=== PATIENT | female | born 1970 ===

== ENCOUNTER 2018-04-27 13:56 | Emergency (ER) | payer SELFPAY ==
[2018-04-27] VITALS (7 sets, daily range): BP systolic 94–111; BP diastolic 55–65; PULSE 70–91; RESP 16–22; TEMP 36.7; O2SAT 93–100; BMI 22.4
--- NOTE | 2018-04-27 14:57 | ED.ABDPAIN ---
HPI - Abdominal Pain General Chief Complaint: Abdominal Pain Stated Complaint: constipated; cancer patient, pain upon sitting Time Seen by Provider: 04/27/18 14:54 Source: patient and family Mode of arrival: ambulatory Limitations: no limitations History of Present Illness HPI narrative: This is a 48-year-old female comes to the emergency department complaint of abdominal and particular rectal pain. Patient states she has known cervical cancer, she was stage III. She has had chemo as well as radiation she states she still has to worse in her cervix. She has not had any surgery. Patient states that she has not had a bowel movement for 2 or 3 days. She has been constipated to this secondary to narcotic medication and she states her bowels moving slower after treatment. She states that she has not been passing gas for probably a 8-12 hours. Patient states she is not having any fevers, no nausea or vomiting she is quite uncomfortable and states she has had a rectal prolapse in the past. She states that it feels like rectum is out for the last several days. Patient states it feels like there is stool in the rectal vault. She did touch base with her physician who told her to add a laxative to her stool softeners. Patient states she is continuing to get surveillance but is not having any treatment currently. She states that some she has had improvement but not resolution of her cancer. She is currently here visiting from [place]. Related Data Previous Rx's Medication Instructions Recorded docusate sodium 250 mg PO DAILY PRN #30 cap 04/27/18 glycerin (adult) 1 suppositor WI QD-BID PRN #25 each 04/27/18 sennosides [Laxative (sennosides)] 50 mg PO DAILY PRN #20 tab 04/27/18 Allergies Allergy/AdvReac Type Severity Reaction Status Date / Time latex Allergy Verified 04/27/18 14:05 Review of Systems Review of Systems All systems reviewed & are unremarkable except as noted in HPI and below Constitutional Denies chills and Denies fever(s) Cardiovascular Denies chest pain and Denies dyspnea Respiratory Denies dyspnea Gastrointestinal Gastrointestinal: Reports abdominal pain, Denies melena, Denies hematochezia, Denies change in bowel habits, Reports tenesmus, Reports constipation (no BM 2-3 days), Reports cramping (lower abdomen), Denies diarrhea, Denies nausea and Denies vomiting Genitourinary Denies hematuria, Denies urinary frequency, Denies difficulty voiding, Denies dysuria, Denies flank pain, Denies urinary incontinence and Denies urinary urgency Musculoskeletal Denies back pain PFSH Medical History Cervical cancer (Acute) Exam Initial Vital Signs Initial Vital Signs: Vital Signs Pulse Rate 91 H 04/27/18 14:05 Respiratory Rate 20 04/27/18 14:05 Pulse Oximetry 97 04/27/18 14:05 GENERAL: Alert and oriented x three, well-nourished, well-appearing female in moderate distress. HEENT: Head normocephalic, atraumatic, EOMI, pupils reactive, face symmetric, moist mucous membranes NECK: Supple, full range of motion CARDIOVASCULAR: Regular rate and rhythm without murmurs, rubs or gallops. RESPIRATORY: Breath sounds equal bilaterally, no wheezes rales or rhonchi. ABDOMEN: Soft, nontender. Normoactive bowel sounds all 4 quadrants. No guarding or rebound, rigidity, no mass. Patient is moderately distended. On rectal exam she appears to have prolapsed anus but it appears chronic the skin is dry and hyperpigemented and does not appear smooth, pink or moist or like a typical recently prolapsed anus. No throbomisis or induration/fluctuence noted. Patient has mild tenderness with palpation and does have quite a bit of tenderness with digital rectal exam. She does have stool rate there in the rectal vault. There is negative for Hemoccult. : No CVA tenderness EXTREMITIES: Normal range of motion, no clubbing or edema. Neurovascularly intact NEUROLOGICAL: Cranial nerves II through XII grossly intact. Moving all extremities SKIN: Warm, dry, no petechiae, no rashes or lesions. Course Orders Ordered: ED Orders 04/27/18 15:18 XR abdomen min 2V Stat 04/27/18 16:40 Complete Blood Count AUTO DIFF Stat Comprehensive Metabolic Panel Stat Lipase Stat Discontinued Medications Hydromorphone HCl (Dilaudid) 1 mg IV Q15M [facility] Stop: 04/27/18 15:46 Last Admin: 04/27/18 15:58 Dose: 1 mg Admin: 04/27/18 15:36 Dose: 1 mg Hydromorphone HCl (Dilaudid) 1 mg IV NOW ONE Stop: 04/27/18 18:57 Last Admin: 04/27/18 19:06 Dose: 1 mg Sodium Chloride (Normal Saline 0.9%) 1,000 mls @ 1,000 mls/hr IV BOLUS ONE Stop: 04/27/18 16:16 Last Infusion: 04/27/18 17:20 Dose: 0 mls/hr Admin: 04/27/18 15:36 Dose: 1,000 mls/hr Magnesium Citrate (Magnesium Citrate) 300 ml PO NOW ONE Stop: 04/27/18 18:56 Last Admin: 04/27/18 19:06 Dose: 300 ml Mineral Oil (Mineral Oil Enema) 1 each WI NOW ONE Stop: 04/27/18 16:51 Last Admin: 04/27/18 17:20 Dose: 1 each Vital Signs - 8 hr 04/27/18 14:05 04/27/18 15:05 04/27/18 15:41 Pulse Rate 91 H 77 79 Respiratory Rate 20 20 17 Blood Pressure [Left Arm] 111/65 105/58 L Pulse Oximetry 97 100 96 04/27/18 15:56 04/27/18 16:00 04/27/18 17:00 Pulse Rate 76 76 71 Respiratory Rate 22 20 Blood Pressure [Left Arm] 105/58 L 106/60 111/62 Pulse Oximetry 96 99 93 MDM - Abdominal Pain Lab Data Attestation: I reviewed the patient's lab results. Result diagrams: 04/27/18 16:40 04/27/18 16:40 Lab Results 04/27/18 04/27/18 Range/Units 16:40 16:40 WBC 9.4 (4.5-11.0) X10^3/uL RBC 3.77 L (4.0-5.2) X10^6/uL Hgb 7.8 L (12.0-16.0) g/dL Hct 25.6 L (36-46) % MCV 67.9 L (80-100) fL MCH 20.6 L (26-34) PG MCHC 30.4 (30-36) % RDW 18.6 H (11.6-14.8) % Plt Count 512 H (150-400) X10^3/uL Neut % (Auto) 76.0 H (50-75) % Lymph % (Auto) 13.9 L (25-40) % [place] % (Auto) 6.6 (3-14) % Eos % (Auto) 2.0 (2-4) % Baso % (Auto) 1.5 (0-2) % Neut # (Auto) 7100 H (1862-4162) /uL RBC Morphology See below Poikilocytosis 2+ H Anisocytosis 1+ H Microcytosis 1+ H Ovalocytes 1+ H Sodium 141 (137-145) mmol/L Potassium 4.3 (3.4-5.1) mmol/L Chloride 105 (98-107) mmol/L Carbon Dioxide 24 (22-32) mmol/L BUN 14 (7-17) mg/dL Creatinine 0.90 (0.52-1.04) mg/dL Estimated GFR > 60.0 (>60) mL/min BUN/Creatinine Ratio 15.6 (6-22) Glucose 78 (70-100) mg/dL Calcium 9.5 (8.4-10.2) mg/dL Total Bilirubin 0.4 (0.2-1.3) mg/dL AST 27 (14-36) IU/L ALT 23 (9-52) IU/L Alkaline Phosphatase 94 (38-126) U/L Total Protein 8.0 (6.3-8.2) g/dL Albumin 4.0 (3.5-5.0) g/dL Globulin 4.0 (1.7-4.1) g/dL Albumin/Globulin Ratio 1.0 (1.0-2.8) Lipase 16 L (23-300) U/L Imaging Data Abdominal x-ray: Radiologist's impression: [place] [address] XRay Report Signed Patient: Shanita Del Toro MR#: [id number] : 1970 Acct:[id number] Age/Sex: 48 / F Date of Service: 04/27/18 Loc: ED Accession Number: [id number] Procedure: XR abdomen min 2V Ordering Provider: Brisa Sanderson D.O. PROCEDURE: XR ABDOMEN MIN 2V INDICATIONS: no BM x 3 days. rectal pain TECHNIQUE: 2 views of the abdomen were acquired. COMPARISON: None. FINDINGS: Surgical changes and devices: None. Bowel: No pneumoperitoneum. The bowel gas pattern is normal. Significant fecal stasis throughout the colon is seen. Soft tissues: No masses; visualized solid organ contours appear normal in size. No suspicious abdominal calcifications. Bones: No suspicious bony abnormalities. IMPRESSION: Significant fecal blood and consistent with moderate constipation. No gross free air. Dictated by: Jesus Ramirez M.D. on 04/27/2018 at 16:17 Approved by: Jesus Ramirez M.D. on 04/27/2018 at 16:18 [facility] Narrative Medical decision making narrative: Spoke with Dr. Manley from general surgery about patient's rectal prolapse. It appears chronic and she stated that there is no acute treatment but there are some long-term possible treatments. She recommends getting patient's stool is soft as possible a mineral oil enema. Stool occult was negative. Patient is anemic, patient states that a couple months ago she did have multiple blood transfusions. She has been asymptomatic recently. She states she had labs drawn several days ago at her oncologist's office. She does not know what her hemoglobin was since patient is asymptomatic we discussed that if she has any bleeding she should return but otherwise to follow up with her doctor. Patient hemoccult was negative patient had a moderate-sized bowel movement but feels she still has some stool retained. Will give her a bottle of magnesium citrate, set her up with Colace and senna regularly with her narcotics. We discussed that she needs to increase her fluid intake for these medications to be affected as well as a glycerin suppository. We also discussed Dr. Sandoval recommendations and reasons to return to the ER. Discharge Plan Departure Patient Disposition: Home Clinical Impression: Constipation, Anemia Instructions: Constipation, DI for Rectal Prolapse Activity Restrictions/Additional Instructions: Follow up with your physician regarding your anemia and rectal prolapse. Your hemoglobin today is 7.8, if you are having any new bleeding return to the ER for recheck of your hemoglobin Take stool softeners and laxatives daily while you are taking narcotic pain medication. Take magnesium citrate drink 1/2 of the bottle weight 3-4 hours if no further bowel movement drink the 2nd half of the bottle. You may also use glycerin suppositories 3 times daily. Return to the emergency department for fevers greater than 100.4, if you are not having any bowel movements again over the next 24 hr, if you're having increasing abdominal pain, vomiting, new bleeding, lightheadedness, passing out, chest pain or shortness of breath or other new or concerning symptoms. Prescriptions: New docusate sodium 250 mg capsule 250 mg PO DAILY PRN (Reason: constipation) Qty: 30 RF: 0 sennosides [Laxative (sennosides)] 25 mg tablet 50 mg PO DAILY PRN (Reason: constipation) Qty: 20 RF: 0 glycerin (adult) suppository 1 suppositor WI QD-BID PRN (Reason: constipation) Qty: 25 RF: 0
--- NOTE | 2018-04-27 15:19 | ED_ITS ---
HPI - Abdominal Pain General Chief Complaint: Abdominal Pain Stated Complaint: constipated; cancer patient, pain upon sitting Time Seen by Provider: 04/27/18 14:54 Source: patient and family Mode of arrival: ambulatory Limitations: no limitations History of Present Illness HPI narrative: This is a 48-year-old female comes to the emergency department complaint of abdominal and particular rectal pain. Patient states she has known cervical cancer, she was stage III. She has had chemo as well as radiation she states she still has to worse in her cervix. She has not had any surgery. Patient states that she has not had a bowel movement for 2 or 3 days. She has been constipated to this secondary to narcotic medication and she states her bowels moving slower after treatment. She states that she has not been passing gas for probably a 8-12 hours. Patient states she is not having any fevers, no nausea or vomiting she is quite uncomfortable and states she has had a rectal prolapse in the past. She states that it feels like rectum is out for the last several days. Patient states it feels like there is stool in the rectal vault. She did touch base with her physician who told her to add a laxative to her stool softeners. Patient states she is continuing to get surveillance but is not having any treatment currently. She states that some she has had improvement but not resolution of her cancer. She is currently here visiting from [place]. Related Data Previous Rx's Medication Instructions Recorded docusate sodium 250 mg PO DAILY PRN #30 cap 04/27/18 glycerin (adult) 1 suppositor GA QD-BID PRN #25 each 04/27/18 sennosides [Laxative (sennosides)] 50 mg PO DAILY PRN #20 tab 04/27/18 Allergies Allergy/AdvReac Type Severity Reaction Status Date / Time latex Allergy Verified 04/27/18 14:05 Review of Systems Review of Systems All systems reviewed & are unremarkable except as noted in HPI and below Constitutional Denies chills and Denies fever(s) Cardiovascular Denies chest pain and Denies dyspnea Respiratory Denies dyspnea Gastrointestinal Gastrointestinal: Reports abdominal pain, Denies melena, Denies hematochezia, Denies change in bowel habits, Reports tenesmus, Reports constipation (no BM 2- 3 days), Reports cramping (lower abdomen), Denies diarrhea, Denies nausea and Denies vomiting Genitourinary Denies hematuria, Denies urinary frequency, Denies difficulty voiding, Denies dysuria, Denies flank pain, Denies urinary incontinence and Denies urinary urgency Musculoskeletal Denies back pain PFSH Medical History Cervical cancer (Acute) Exam Initial Vital Signs Initial Vital Signs: Vital Signs Pulse Rate 91 H 04/27/18 14:05 Respiratory Rate 20 04/27/18 14:05 Pulse Oximetry 97 04/27/18 14:05 GENERAL: Alert and oriented x three, well-nourished, well-appearing female in moderate distress. HEENT: Head normocephalic, atraumatic, EOMI, pupils reactive, face symmetric, moist mucous membranes NECK: Supple, full range of motion CARDIOVASCULAR: Regular rate and rhythm without murmurs, rubs or gallops. RESPIRATORY: Breath sounds equal bilaterally, no wheezes rales or rhonchi. ABDOMEN: Soft, nontender. Normoactive bowel sounds all 4 quadrants. No guarding or rebound, rigidity, no mass. Patient is moderately distended. On rectal exam she appears to have prolapsed anus but it appears chronic the skin is dry and hyperpigemented and does not appear smooth, pink or moist or like a typical recently prolapsed anus. No throbomisis or induration/fluctuence noted. Patient has mild tenderness with palpation and does have quite a bit of tenderness with digital rectal exam. She does have stool rate there in the rectal vault. There is negative for Hemoccult. : No CVA tenderness EXTREMITIES: Normal range of motion, no clubbing or edema. Neurovascularly intact NEUROLOGICAL: Cranial nerves II through XII grossly intact. Moving all extremities SKIN: Warm, dry, no petechiae, no rashes or lesions. Course Orders Ordered: ED Orders 04/27/18 15:18 XR abdomen min 2V Stat 04/27/18 16:40 Complete Blood Count AUTO DIFF Stat Comprehensive Metabolic Panel Stat Lipase Stat Discontinued Medications Hydromorphone HCl (Dilaudid) 1 mg IV Q15M [facility] Stop: 04/27/18 15:46 Last Admin: 04/27/18 15:58 Dose: 1 mg Admin: 04/27/18 15:36 Dose: 1 mg Hydromorphone HCl (Dilaudid) 1 mg IV NOW ONE Stop: 04/27/18 18:57 Last Admin: 04/27/18 19:06 Dose: 1 mg Sodium Chloride (Normal Saline 0.9%) 1,000 mls @ 1,000 mls/hr IV BOLUS ONE Stop: 04/27/18 16:16 Last Infusion: 04/27/18 17:20 Dose: 0 mls/hr Admin: 04/27/18 15:36 Dose: 1,000 mls/hr Magnesium Citrate (Magnesium Citrate) 300 ml PO NOW ONE Stop: 04/27/18 18:56 Last Admin: 04/27/18 19:06 Dose: 300 ml Mineral Oil (Mineral Oil Enema) 1 each GA NOW ONE Stop: 04/27/18 16:51 Last Admin: 04/27/18 17:20 Dose: 1 each Vital Signs - 8 hr 04/27/18 14:05 04/27/18 15:05 04/27/18 15:41 Pulse Rate 91 H 77 79 Respiratory Rate 20 20 17 Blood Pressure [Left Arm] 111/65 105/58 L Pulse Oximetry 97 100 96 04/27/18 15:56 04/27/18 16:00 04/27/18 17:00 Pulse Rate 76 76 71 Respiratory Rate 22 20 Blood Pressure [Left Arm] 105/58 L 106/60 111/62 Pulse Oximetry 96 99 93 MDM - Abdominal Pain Lab Data Attestation: I reviewed the patient's lab results. Result diagrams: 04/27/18 16:40 04/27/18 16:40 Lab Results 04/27/18 04/27/18 Range/Units 16:40 16:40 WBC 9.4 (4.5-11.0) X10^3/uL RBC 3.77 L (4.0-5.2) X10^6/uL Hgb 7.8 L (12.0-16.0) g/dL Hct 25.6 L (36-46) % MCV 67.9 L (80-100) fL MCH 20.6 L (26-34) PG MCHC 30.4 (30-36) % RDW 18.6 H (11.6-14.8) % Plt Count 512 H (150-400) X10^3/uL Neut % (Auto) 76.0 H (50-75) % Lymph % (Auto) 13.9 L (25-40) % [place] % (Auto) 6.6 (3-14) % Eos % (Auto) 2.0 (2-4) % Baso % (Auto) 1.5 (0-2) % Neut # (Auto) 7100 H (8893-2043) /uL RBC Morphology See below Poikilocytosis 2+ H Anisocytosis 1+ H Microcytosis 1+ H Ovalocytes 1+ H Sodium 141 (137-145) mmol/L Potassium 4.3 (3.4-5.1) mmol/L Chloride 105 (98-107) mmol/L Carbon Dioxide 24 (22-32) mmol/L BUN 14 (7-17) mg/dL Creatinine 0.90 (0.52-1.04) mg/dL Estimated GFR > 60.0 (>60) mL/min BUN/Creatinine Ratio 15.6 (6-22) Glucose 78 (70-100) mg/dL Calcium 9.5 (8.4-10.2) mg/dL Total Bilirubin 0.4 (0.2-1.3) mg/dL AST 27 (14-36) IU/L ALT 23 (9-52) IU/L Alkaline Phosphatase 94 (38-126) U/L Total Protein 8.0 (6.3-8.2) g/dL Albumin 4.0 (3.5-5.0) g/dL Globulin 4.0 (1.7-4.1) g/dL Albumin/Globulin Ratio 1.0 (1.0-2.8) Lipase 16 L (23-300) U/L Imaging Data Abdominal x-ray: Radiologist's impression: [place] [address] XRay Report Signed Patient: Shanita Del Toro MR#: [id number] : 1970 Acct:[id number] Age/Sex: 48 / F Date of Service: 04/27/18 Loc: ED Accession Number: [id number] Procedure: XR abdomen min 2V Ordering Provider: Brisa Sanderson D.O. PROCEDURE: XR ABDOMEN MIN 2V INDICATIONS: no BM x 3 days. rectal pain TECHNIQUE: 2 views of the abdomen were acquired. COMPARISON: None. FINDINGS: Surgical changes and devices: None. Bowel: No pneumoperitoneum. The bowel gas pattern is normal. Significant fecal stasis throughout the colon is seen. Soft tissues: No masses; visualized solid organ contours appear normal in size. No suspicious abdominal calcifications. Bones: No suspicious bony abnormalities. IMPRESSION: Significant fecal blood and consistent with moderate constipation. No gross free air. Dictated by: Jesus Ramirez M.D. on 04/27/2018 at 16:17 Approved by: Jesus Ramirez M.D. on 04/27/2018 at 16:18 [facility] Narrative Medical decision making narrative: Spoke with Dr. Manley from general surgery about patient's rectal prolapse. It appears chronic and she stated that there is no acute treatment but there are some long-term possible treatments. She recommends getting patient's stool is soft as possible a mineral oil enema. Stool occult was negative. Patient is anemic, patient states that a couple months ago she did have multiple blood transfusions. She has been asymptomatic recently. She states she had labs drawn several days ago at her oncologist's office. She does not know what her hemoglobin was since patient is asymptomatic we discussed that if she has any bleeding she should return but otherwise to follow up with her doctor. Patient hemoccult was negative patient had a moderate-sized bowel movement but feels she still has some stool retained. Will give her a bottle of magnesium citrate, set her up with Colace and senna regularly with her narcotics. We discussed that she needs to increase her fluid intake for these medications to be affected as well as a glycerin suppository. We also discussed Dr. Sandoval recommendations and reasons to return to the ER. Discharge Plan Departure Patient Disposition: Home Clinical Impression: Constipation, Anemia Instructions: Constipation, DI for Rectal Prolapse Activity Restrictions/Additional Instructions: Follow up with your physician regarding your anemia and rectal prolapse. Your hemoglobin today is 7.8, if you are having any new bleeding return to the ER for recheck of your hemoglobin Take stool softeners and laxatives daily while you are taking narcotic pain medication. Take magnesium citrate drink 1/2 of the bottle weight 3-4 hours if no further bowel movement drink the 2nd half of the bottle. You may also use glycerin suppositories 3 times daily. Return to the emergency department for fevers greater than 100.4, if you are not having any bowel movements again over the next 24 hr, if you're having increasing abdominal pain, vomiting, new bleeding, lightheadedness, passing out , chest pain or shortness of breath or other new or concerning symptoms. Prescriptions: New docusate sodium 250 mg capsule 250 mg PO DAILY PRN (Reason: constipation) Qty: 30 RF: 0 sennosides [Laxative (sennosides)] 25 mg tablet 50 mg PO DAILY PRN (Reason: constipation) Qty: 20 RF: 0 glycerin (adult) suppository 1 suppositor GA QD-BID PRN (Reason: constipation) Qty: 25 RF: 0
--- NOTE | 2018-04-27 15:26 | PC.NURSE ---
pt with constipation for 2 days, has been taking miralax with stool softener, magnesium. hx of stage III cervical cancer, had radiation a year ago, just had pet scan last tuesday has been taking oxycodone 5mg (3 tabs) denies fever, but feeling burning at home, denies nausea or vomiting. abdominal distention, hx of anal prolapse, ?fissure. pt on remission, from [place], visiting her mother here in [place].
[2018-04-27] MEDS: SODIUM CHLORIDE 0.9% 1,000 ML 1000 ML IV (15:36)
[2018-04-27] MEDS: HYDROMORPHONE 1 MG INJ IV ×3 (15:36→19:06)
--- NOTE | 2018-04-27 15:57 | PC.NURSE ---
eliel with tears, mother at bs.
[2018-04-27] MEDS: MINERAL OIL 1 EACH ENEMA PR (17:20)
[2018-04-27 17:27] LABS: Add Manual Diff / Slide Review NO; Basophils Percent Auto 1.5 % (0-2); Hematocrit 25.6 % (36-46); Hemoglobin 7.8 g/dL (12.0-16.0); Lymphocytes Percent Auto 13.9 % (25-40); Mean Corpuscular HGB Conc 30.4 % (30-36); Mean Corpuscular Hemoglobin 20.6 PG (26-34); Mean Corpuscular Volume 67.9 fL (80-100); Monocytes Percent Auto 6.6 % (3-14); Neutrophils Absolute Auto 7100 /uL (1500-7000); Platelet Count 512 X10^3/uL (150-400); Red Blood Cell Count 3.77 X10^6/uL (4.0-5.2); Red Cell Distribution Width 18.6 % (11.6-14.8); White Blood Cell Count 9.4 X10^3/uL (4.5-11.0)
[2018-04-27 17:39] LABS: Alanine Aminotransferase 23 IU/L (9-52); Alkaline Phosphatase 94 U/L (38-126); Aspartate Aminotransferase 27 IU/L (14-36); BUN Creatinine Ratio 15.6 (6-22); Bilirubin Total 0.4 mg/dL (0.2-1.3); Blood Urea Nitrogen 14 mg/dL (7-17); Calcium 9.5 mg/dL (8.4-10.2); Carbon Dioxide 24 mmol/L (22-32); Chloride 105 mmol/L (98-107); Estimated Glomerular Filt Rate > 60.0 mL/min (>60); Glucose 78 mg/dL (70-100); Lipase 16 U/L (23-300); Potassium 4.3 mmol/L (3.4-5.1); Sodium 141 mmol/L (137-145)
[2018-04-27 17:42] LABS: HEMOLYSIS 54 (0-50)
[2018-04-27 17:44] LABS: Anisocytosis 1+; Microcytosis 1+; Ovalocytes 1+; Poikilocytosis 2+
--- NOTE | 2018-04-27 18:14 | PC.NURSE ---
with large stools. pt feeling better.
[2018-04-27] MEDS: MAGNESIUM CITRATE 300 ML SOLUTION PO (19:06)
== END 2018-04-27 19:53 | disposition home or self-care (01) ==
PROVIDERS: Emergency Provider Emergency Medicine
DX: K59.00 Constipation, unspecified (principal); D64.9 Anemia, unspecified
CPT/HCPCS: 36591; 74019; 80053; 83690; 85025; 96361; 96374; 96376; 99283; 99284; J1170